=== PATIENT | female | born 1960 | race Caucasian/White ===

== ENCOUNTER 2021-02-08 12:32 | Emergency (ER) | payer OTHER ==
[~2021-02-08] VITALS: Ht 167.6 cm; Wt 81.0 kg
[2021-02-08 12:55] VITALS: BP 113/58
[2021-02-08] MEDS ORDERED: MAGNESIUM/ALUMINUM HYDROXIDE/SIMETHICONE 30ML UDC PO STA (13:11)
[2021-02-08] MEDS ORDERED: VISCOUS LIDOCAINE 2% 15 ML UDC PO STA (13:11)
[2021-02-08] MEDS ORDERED: FAMOTIDINE 20MG TABLET PO ONE (13:15)
[2021-02-08 13:55] LABS: BASOPHILS % 0.6 % (0.0-2.0); EOSINOPHILS % 0.7 % (0.0-5.0); HEMATOCRIT. 40.3 % (36.0-48.0); HEMOGLOBIN. 13.6 g/dL (12.0-16.0); MEAN CORPUSCULAR HEMOGLOBIN 28.8 pg (28.0-32.0); MEAN CORPUSCULAR VOLUME 85.5 fL (81.0-99.0); MEAN PLATELET VOLUME 6.7 fl (7.4-10.4); MONOCYTES % 6.6 % (2.0-8.0); NEUTROPHILS % 76.1 % (40.0-76.0); PLATELET 266 x1000/uL (130-400); RED BLOOD CELL COUNT 4.71 mill/uL (4.2-5.4); RED CELL DISTRIBUTION WIDTH 16.4 % (11.6-14.6)
[2021-02-08 14:02] LABS: CHLORIDE 99 mEq/L (98-107)
== END 2021-02-08 18:36 | disposition left against medical advice (07) ==
LOC: ER 12:41
DX: R10.9 Unspecified abdominal pain (principal)
CPT/HCPCS: 36415; 76700; 80053; 85025; 99284